=== PATIENT | male | born 1990 | race Two or more races ===

== ENCOUNTER 2023-01-15 12:03 | Emergency (ER) | payer MEDICAID, OTHER ==
[~2023-01-15] VITALS: Ht 177.8 cm; Wt 90.7 kg
[2023-01-15] MEDS ORDERED: CEPH-510 PO (13:13)
[2023-01-15] MEDS ORDERED: CLIN300C8 PO (13:13)
[2023-01-15] MEDS ORDERED: CLINDAMYCIN 600 MG/4 ML VL IM ONE (13:15)
[2023-01-15] MEDS ORDERED: methylPREDNISolone SOD SUCC 125 MG/2 ML VL IM ONE (13:15)
[2023-01-15] MEDS ORDERED: cefTRIAXone SOD 1,000 MG VL IM ONE (13:15)
[2023-01-15] MEDS ORDERED: CLINDAMYCIN HCL 150 MG CAP PO ONE (13:15)
[2023-01-15 14:04] VITALS: BP 92/46
== END 2023-01-15 14:06 | disposition home or self-care (01) ==
LOC: EDBD 12:03 → ER 12:03
DX: L03.114 Cellulitis of left upper limb (principal); F17.210 Nicotine dependence, cigarettes, uncomplicated; Z79.2 Long term (current) use of antibiotics; Z79.899 Other long term (current) drug therapy
CPT/HCPCS: 93971; 96372; 99284; J0696; J2930